=== PATIENT | female | born 1970 | race Caucasian/White ===

== ENCOUNTER 2016-05-23 00:42 | Emergency (ER) | payer MEDICAID ==
[2016-05-23] MEDS ORDERED: Albuterol Nebulizer 2.5mg/3mL HHN STA (01:00)
[2016-05-23] MEDS ORDERED: Albuterol Nebulizer 2.5mg/3mL HHN ONE (01:05)
--- NOTE | 2016-05-23 01:43 | ED Physician Chart ---
Chief Complaint/HPI - Patient Information Date Seen:: 05/23/16 Time Seen:: 01:20 Chief Complaint:: cough History of Present Illness:: Pt. has had cough and wheezing 2 days. No fever. Cough is nonprod. Denies other med problems. Uses Albut. inhaler. Needs. Allergies:: Allergies Allergy/AdvReac Type Severity Reaction Status Date / Time No Known Allergies Allergy Verified 05/23/16 01:19 Vitals:: Vital Signs - 8 hr 05/23/16 05/23/16 01:06 01:09 Temp 97.8 F HR 120 115 RR 16 22 BP 138/76 O2 Sat % 100 Heart rate 93. Historian:: Patient Review of Systems - Review of Systems General/Constitutional: No fever Skin: No skin lesions Head: No headache ENT: No earache, No sore throat Neck: No neck pain Cardio Vascular: No chest pain Pulmonary: SOB, Cough, No sputum GI: No nausea, No vomiting, No diarrhea G/U: No dysuria Psychiatric: No prior psych history Hematopoietic: No bruising Allergic/Immuno: No urticaria Neurological: No syncope, No focal symptoms Past Medical History - Past Medical History Past Medical History: Asthma/COPD Family History: None Social History: Non Smoker, No Alcohol Surgical History: None Medication: Reviewed (has used inhalers.) Family Medical History - Family Member Sister History Unknown: Yes Ethnicity: Living Status: Still Living Mother History Unknown: Yes Physical Exam - Physical Examination General/Constitutional: Awake, Well-developed, well-nourished, Alert, No distress, GCS 15, Non-toxic appearing, Ambulatory Head: Atraumatic Eyes: Lids, conjuctiva normal, PERRL, EOMI Skin: Nl inspection ENMT: External ears, nose nl Neck: Nontender, Full ROM w/o pain Respiratory: Nl effort/Exclusion Other Respiratory comments:: Wheezing initially, improved. Cardio Vascular: RRR, No murmur, gallop, rubs GI: No tenderness/rebounding/guarding, No organomegaly : No CVA tenderness Extremities: No tenderness or effusion Neuro/Psych: Alert/oriented, Normal motor strength, Judgement/insight normal ED Septic Shock - . Is Septic Shock (SBP<90, OR Lactate>4 mmol\L) present?: No - <6hrs of presentation: Vital Signs: Vital Signs - 8 hr 01/07/17 01/07/17 01:06 01:09 Temp 97.8 F HR 120 115 RR 16 22 BP 138/76 O2 Sat % 100 Reassessment (Disposition) - Reassessment Reassessment:: CXR discussed, pt. feels better and wants to go. Will give script for Albut. MDI and Sascha Elizalde. Reassessment Condition:: Improved - Diagnosis Diagnosis:: Dx: Acute eipsode of asthmatic bronchitis. - Aftercare/Follow up Instructions Aftercare/Follow-Up Instructions:: Counseled pt regarding lab results/diagnosis & need follow up Medication Prescribed:: Rx: Sascha Elizalde sig: take as directed. Disp. #1 No refill Rx: Albuterol MDI: ii puffs qid prn. Disp. #1. No refill. - Patient Disposition Discharge/Transfer:: Home Condition at Disposition:: Improved ED Discharge Plan - Patient Disposition Admit/Discharge/Transfer: PT DISCHARGED HOME Condition at Disposition: Improved
== END 2016-05-23 01:55 | disposition home or self-care (01) ==
LOC: ER 00:42
DX: J45.909 Unspecified asthma, uncomplicated (principal); J20.9 Acute bronchitis, unspecified
CPT/HCPCS: 99283; 96372; 94640; J2930; J7613; Z7502

== ENCOUNTER 2016-05-27 20:32 | Emergency (ER) | payer MEDICAID ==
[2016-05-27] MEDS ORDERED: Albuterol/Ipratropium Neb 3 ML AERS HHN ONE ×4 (20:41→21:08)
--- NOTE | 2016-05-27 20:49 | ED Physician Chart ---
Chief Complaint/HPI - Patient Information Date Seen:: 05/27/16 Time Seen:: 20:46 Chief Complaint:: sob History of Present Illness:: pt here for severe sob. Has hx of asthma and uses inhaler at home. also has a albuterol neb machine at home but ran out of alb neb vials. worse sob today. not a smoker. no leg pain or edema. pt was not speaking at initial eval at all...I assumed this was bc of sob however later I learn she speaks only azerbaijani and neither she nor her bilingual friend volunteered this information... pt is capable of nrml speech. Allergies:: Allergies Allergy/AdvReac Type Severity Reaction Status Date / Time No Known Allergies Allergy Verified 05/23/16 01:19 Historian:: Patient, Family Member Review of Systems - Review of Systems General/Constitutional: No fever, No chills, No weight loss, No weakness, No diaphoresis, No edema, No loss of appetite Skin: No skin lesions, No rash, No bruising Head: No headache, No light-headedness Eyes: No loss of vision, No pain, No diplopia ENT: No earache, No nasal drainage, No sore throat, No tinnitus Neck: No neck pain, No swelling, No thyromegaly, No stiffness, No mass noted Cardio Vascular: No chest pain, No palpitations, No PND, No orthopnea, No edema Pulmonary: SOB (pt was not speaking at initial eval at all...I assumed this was bc of sob however later I learn she speaks only azerbaijani and neither she nor her bilingual friend volunteered this information... pt is capable of nrml speech.) , No cough, No sputum, No wheezing GI: No nausea, No vomiting, No diarrhea, No pain, No melena, No hematochezia, No constipation, No hematemesis G/U: No dysuria, No frequency, No hematuria Musculoskeletal: No bone or joint pain, No back pain, No muscle pain Endocrine: No polyuria, No polydipsia Psychiatric: No prior psych history, No depression, No anxiety, No suicidal ideation Hematopoietic: No bruising, No lymphadenopathy Allergic/Immuno: No urticaria, No angioedema Neurological: No syncope, No focal symptoms, No weakness, No paresthesia, No headache, No seizure, No dizziness, No confusion, No vertigo Past Medical History - Past Medical History Past Medical History: Asthma/COPD Social History: Non Smoker Medication: Reviewed Family Medical History - Family Member Sister History Unknown: Yes Ethnicity: Living Status: Still Living Mother History Unknown: Yes Physical Exam - Physical Examination General/Constitutional: Awake, Well-developed, well-nourished, Alert, No distress, GCS 15, Non-toxic appearing, Ambulatory Other Gen/Cons comments:: pt was not speaking at initial eval at all...I assumed this was bc of sob however later I learn she speaks only azerbaijani and neither she nor her bilingual friend volunteered this information... pt is capable of [facility] speech. Head: Atraumatic Eyes: Lids, conjuctiva normal, PERRL, EOMI Skin: Nl inspection, No rash, No skin lesions, No ecchymosis, Well hydrated, No lymphadenopathy ENMT: External ears, nose nl, Nasal exam nl, Lips, teeth, gums nl Neck: Nontender, Full ROM w/o pain, No JVD, No nuchal rigidity, No bruit, No mass, No stridor Respiratory: Nl effort/Exclusion, Clear to Auscultation Other Respiratory comments:: pos diffuse wheeze and decreased air mvt. pt not talking at initial eval but not looking spent. no tripod. is alert and aware. Cardio Vascular: RRR, No murmur, gallop, rubs, NL S1 S2 GI: No tenderness/rebounding/guarding, No organomegaly, No hernia, Normal BS's, Nondistended, No mass/bruits, No McBurney tenderness : No CVA tenderness Extremities: No tenderness or effusion, Full ROM, normal strength in all extremities, No edema, Normal digits & nails Other Extremities comments:: no edema, no fitz sx Neuro/Psych: Alert/oriented, DTR's symmetric, Normal sensory exam, Normal motor strength, Judgement/insight normal, Mood normal, Normal gait, No focal deficits Misc: normal gait, Normal back, No paraspinal tenderness ED Septic Shock - . Is Septic Shock (SBP<90, OR Lactate>4 mmol\L) present?: No Reassessment (Disposition) - Reassessment Reassessment:: pt doing better. speaking full sentences in [place]. alert. nontoxic. improved after 2nd neb saO2 now 98%RA. rx prednisone taper, zpac, alubterol neb vials refill. pt to avoid smokers and see pmd in next day. return if worse. Reassessment Condition:: Improved - Diagnosis Diagnosis:: 1 athma 2 bronchitis - Aftercare/Follow up Instructions Aftercare/Follow-Up Instructions:: Counseled pt & family regarding lab results/ diagnosis & need follow up - Patient Disposition Discharge/Transfer:: Home Condition at Disposition:: Improved
--- NOTE | 2016-05-28 11:42 | Diagnostic Imaging Report ---
Portable chest x-ray History: Shortness of breath Allowing for portable technique the heart size is normal. No focal pulmonary parenchymal processes. No hilar or mediastinal abnormalities. Impression: No acute abnormalities.
== END 2016-05-27 22:20 | disposition home or self-care (01) ==
LOC: ER 20:32
DX: J44.9 Chronic obstructive pulmonary disease, unspecified (principal); J45.909 Unspecified asthma, uncomplicated
CPT/HCPCS: 99283; 71010; 96372; 94664; J2930; 94640; Z7502

== ENCOUNTER 2016-07-11 13:42 | Emergency (ER) | payer MEDICAID ==
[2016-07-11] MEDS ORDERED: Albuterol Nebulizer 2.5mg/3mL HHN STA (13:51)
--- NOTE | 2016-07-11 13:51 | ED Physician Chart ---
Chief Complaint/HPI - Patient Information Date Seen:: 07/11/16 Time Seen:: 13:42 Chief Complaint:: SOB History of Present Illness:: 46-year-old female history of asthma, complains of acute, worsening, constant, severe, shortness of breath that started yesterday. Has associated wheezing. Has been using her albuterol inhaler but it has not been helping. Allergies:: Allergies Allergy/AdvReac Type Severity Reaction Status Date / Time No Known Allergies Allergy Verified 05/27/16 21:45 Historian:: Patient Review:: Nurse's Note Reviewed Review of Systems - Review of Systems Other: Complete system review otherwise unremarkable except as noted in HPI. Past Medical History - Past Medical History Past Medical History: Asthma/COPD Family History: None Social History: Non Smoker, No Alcohol, No Drug Use, Employed Surgical History: None Psychiatricy History: None Medication: Reviewed Family Medical History - Family Member Sister History Unknown: Yes Ethnicity: Living Status: Still Living Hx Family Cancer: No Hx Family Coronary Artery Disease: No Hx Family Congestive Heart Failure: No Hx Family Hypertension: No Mother History Unknown: Yes Physical Exam - Physical Examination Other:: INITIAL VITAL SIGNS: Reviewed by me GENERAL: Alert and interactive. Moderate respiratory distress HEAD: Head is normocephalic and atraumatic EYES: EOMI. . No scleral icterus. No conjunctival injection ENT: Moist mucous membranes. NECK: Supple. No masses. Full range of motion RESPIRATORY: Tachypneic, bilateral inspiratory and expiratory wheezing. CV: Tachycardic. No murmurs, rubs, or gallops ABDOMEN: Soft, non-distended, non-tender. No guarding. No rebound. No masses. EXTREMITIES: No deformity. No cyanosis. No edema. SKIN: Warm and dry. No obvious rashes. NEUROLOGIC: Alert and oriented. Face is symmetric. Speech is normal. Moves all extremities equally. Motor and sensory distally intact. ED Septic Shock - . Is Septic Shock (SBP<90, OR Lactate>4 mmol\L) present?: No Reassessment (Disposition) - Reassessment Reassessment:: The patient's blood pressure was elevated (>120/80) but appears stable without evidence of hypertensive emergency or urgency. The patient was counseled about the risks hypertension urged to pursue outpatient monitoring and therapy within a week with her primary care physician. Patient having asthma exacerbation. Received albuterol and ipratropium. Also received IV Solu-Medrol. Symptoms greatly improved. Has inhalers at home. No underlying infectious etiology suspected. Provided prescription for prednisone to be given daily for 5 days. Follow-up PCP 1-2 days. Return to ER precautions were given. Patient understands and agrees with the plan. Reassessment Condition:: Improved - Diagnosis Diagnosis:: Asthma exacerbation, acute Elevated blood pressure without diagnosis of hypertension - Aftercare/Follow up Instructions Aftercare/Follow-Up Instructions:: Counseled pt regarding lab results/diagnosis & need follow up, Refer to Discharge Instructions - Patient Disposition Discharge/Transfer:: Home Time:: 15:08 Condition at Disposition:: Improved ED Discharge Plan - Patient Disposition Admit/Discharge/Transfer: PT DISCHARGED HOME Condition at Disposition: Improved Instructions: Asthma, Adult, [id number]
[2016-07-11] MEDS ORDERED: Albuterol Nebulizer 2.5mg/3mL HHN ONE ×2 (13:55→14:00)
[2016-07-11] MEDS ORDERED: Ipratropium Neb 0.5 mg/2.5 mL UD HHN STA (14:02)
[2016-07-11] MEDS ORDERED: Ipratropium Neb 0.5 mg/2.5 mL UD HHN ONE (14:04)
== END 2016-07-11 15:05 | disposition home or self-care (01) ==
LOC: ER 13:42
DX: J45.901 Unspecified asthma with (acute) exacerbation (principal); R03.0 Elevated blood-pressure reading, without diagnosis of hypertension; J44.9 Chronic obstructive pulmonary disease, unspecified
CPT/HCPCS: 99284; 96374; 94640; J2930; 90779; J7613; Z7502

== ENCOUNTER 2016-08-11 02:10 | Inpatient (IN) | payer MEDICAID ==
[2016-08-11 02:51] LABS: HEMATOCRIT 26.1 % (35.0-45.0); MEAN CORPUSCULAR HEMOGLOBIN 19.4 pg (27.0-31.0); MEAN CORPUSCULAR HGB CONC 30.6 pg (28.0-36.0); RED BLOOD COUNT 4.11 Mil/cmm (3.80-5.10); RED CELL DISTRIBUTION WIDTH 19.2 % (11.5-20.0); WHITE BLOOD COUNT 8.9 Th/cmm (4.8-10.8)
[2016-08-11 02:58] LABS: INR 0.99 (0.5-1.4); PROTHROMBIN TIME (TEST) 10.3 SECONDS (9.5-11.5)
[2016-08-11 02:59] LABS: ALB/GLOB RATIO 1.2 (1.0-1.8); ALKALINE PHOSPHATASE 69 U/L (34-104); ANION GAP 8.5 (7.0-16.0); BILIRUBIN,TOTAL 0.4 mg/dL (0.3-1.0); BUN - UREA NITROGEN 12 mg/dL (7-25); CALCIUM SERUM 9.1 mg/dL (8.6-10.3); CARBON DIOXIDE 22.9 mEq/L (21.0-31.0); CHLORIDE 107 mEq/L (98-107); CREATININE - SERUM 0.6 mg/dL (0.6-1.2); GLUCOSE 101 mg/dL (70-105); POTASSIUM SERUM 3.4 mEq/L (3.5-5.1); SGOT 15 U/L (13-39); SGPT/ALT 9 U/L (7-52); SODIUM SERUM 135 mEq/L (136-145)
[2016-08-11 03:00] LABS: HCO3 24.4 mEq/L (20.0-26.0); pH 7.42 (7.35-7.45)
[2016-08-11 03:01] LABS: ABG SOURCE ARTERIAL; ALLEN TEST Positive; BE(B) -0.7 mEq/L (-3.0-3.0)
[2016-08-11 03:02] LABS: CRITICAL VALUES REPORTED BY DV
[2016-08-11 03:05] LABS: MEAN CELL VOLUME 63.5 fl (81-100)
--- NOTE | 2016-08-11 03:27 | ED Physician Chart ---
Chief Complaint/HPI - Patient Information Date Seen:: 08/11/16 Time Seen:: 02:21 Chief Complaint:: SOB History of Present Illness:: THIS IS A 46 YO FEMALE WITH THE ONSET OF DIFFICULTY WITH BREATHING AND SOME WEAKNESS. SHE DENIES BLOOD IN THE STOOL,URINE AND SHE DOES NOT HAVE HEAVY VAGINAL BLEEDING. SHE DENIES PAIN, NAUSEA AND VOMITING. SHE HAS DENIES A COUGH , CHEST CONGESTION AND FEVER. Allergies:: Allergies Allergy/AdvReac Type Severity Reaction Status Date / Time No Known Allergies Allergy Verified 08/11/16 02:43 Vitals:: Vital Signs - 8 hr 08/11/16 02:15 Temp 98.2 F HR 110 RR 24 BP 133/78 O2 Sat % 99 Historian:: Patient, Family Member Review:: Nurse's Note Reviewed Review of Systems - Review of Systems General/Constitutional: No fever, No chills, No weight loss, No weakness, No diaphoresis, No edema, No loss of appetite Skin: No skin lesions, No rash, No bruising Head: No headache, No light-headedness Eyes: No loss of vision, No pain, No diplopia ENT: No earache, No nasal drainage, No sore throat, No tinnitus Neck: No neck pain, No swelling, No thyromegaly, No stiffness, No mass noted Cardio Vascular: No chest pain, No palpitations, No PND, No orthopnea, No edema Pulmonary: SOB, No cough, No sputum, No wheezing GI: No nausea, No vomiting, No diarrhea, No pain, No melena, No hematochezia, No constipation, No hematemesis G/U: No dysuria, No frequency, No hematuria Musculoskeletal: No bone or joint pain, No back pain, No muscle pain Endocrine: No polyuria, No polydipsia Psychiatric: No prior psych history, No depression, No anxiety, No suicidal ideation Hematopoietic: No bruising, No lymphadenopathy Allergic/Immuno: No urticaria, No angioedema Neurological: No syncope, No focal symptoms, Weakness, No paresthesia, No headache, No seizure, No dizziness, No confusion, No vertigo Past Medical History - Past Medical History Obtainable: Yes Past Medical History: Asthma/COPD Family History: None Social History: Non Smoker, No Alcohol, No Drug Use Surgical History: None Psychiatricy History: None Medication: Reviewed Family Medical History - Family Member Sister History Unknown: Yes Ethnicity: Living Status: Still Living Hx Family Cancer: No Hx Family Coronary Artery Disease: No Hx Family Congestive Heart Failure: No Hx Family Hypertension: No Mother History Unknown: Yes Physical Exam - Physical Examination General/Constitutional: Awake, Well-developed, well-nourished, Alert, No distress, GCS 15, Non-toxic appearing, Ambulatory Head: Atraumatic Eyes: Lids, conjuctiva normal, PERRL, EOMI Skin: Nl inspection, No rash, No skin lesions, No ecchymosis, Well hydrated, No lymphadenopathy ENMT: External ears, nose nl, Nasal exam nl, Lips, teeth, gums nl Neck: Nontender, Full ROM w/o pain, No JVD, No nuchal rigidity, No bruit, No mass, No stridor Respiratory: Nl effort/Exclusion, Clear to Auscultation, No Wheeze/Rhonchi/Rales Cardio Vascular: RRR, No murmur, gallop, rubs, NL S1 S2 GI: No tenderness/rebounding/guarding, No organomegaly, No hernia, Normal BS's, Nondistended, No mass/bruits, No McBurney tenderness : No CVA tenderness Extremities: No tenderness or effusion, Full ROM, normal strength in all extremities, No edema, Normal digits & nails Neuro/Psych: Alert/oriented, DTR's symmetric, Normal sensory exam, Normal motor strength, Judgement/insight normal, Mood normal, Normal gait, No focal deficits Misc: normal gait, Normal back, No paraspinal tenderness Labs/Radiology/EKG Results - Lab Results Results: Laboratory Tests 08/11/16 08/11/16 08/11/16 02:16 02:20 02:20 WBC 8.9 RBC 4.11 Hgb 8.0 L Hct 26.1 L MCV 63.5 L MCH 19.4 L MCHC Differential 30.6 RDW 19.2 Plt Count 197 MPV 9.0 PT 10.3 INR 0.99 Specimen Source ARTERIAL Sample Site RB pH 7.42 pCO2 36.0 pO2 85.0 HCO3 24.4 Base Excess -0.7 O2 Saturation 97.0 Aaron Test Positive Vent Rate NA Inspired O2 NA Tidal Volume NA PEEP NA Pressure (ins/psv/peep) NA Critical Value DV Sodium Potassium Chloride Carbon Dioxide Anion Gap BUN Creatinine Est GFR ( Amer) Est GFR (Non-Af Amer) BUN/Creatinine Ratio Glucose Calcium Total Bilirubin AST ALT Alkaline Phosphatase Troponin I Total Protein Albumin Globulin Albumin/Globulin Ratio 08/11/16 08/11/16 02:20 02:20 WBC RBC Hgb Hct MCV MCH MCHC Differential RDW Plt Count MPV PT INR Specimen Source Sample Site pH pCO2 pO2 HCO3 Base Excess O2 Saturation Aaron Test Vent Rate Inspired O2 Tidal Volume PEEP Pressure (ins/psv/peep) Critical Value Sodium 135 L Potassium 3.4 L Chloride 107 Carbon Dioxide 22.9 Anion Gap 8.5 BUN 12 Creatinine 0.6 Est GFR ( Amer) > 60.0 Est GFR (Non-Af Amer) > 60.0 BUN/Creatinine Ratio 20.0 Glucose 101 Calcium 9.1 Total Bilirubin 0.4 AST 15 ALT 9 Alkaline Phosphatase 69 Troponin I < 0.01 L Total Protein 7.8 Albumin 4.2 Globulin 3.6 Albumin/Globulin Ratio 1.2 - Radiology Results Results: CHEST X-RAY = NAD AND NO INFILTRATES ARE SEEN. THERE IS NO CARDIOMEGALY - EKG Interpretations EKG Time:: 02:34 Rhythm: SINUS TACHYCARDIA [place]: RIGHT Rate: 102 Comments:: THERE ARE NO PVC, PAC, OR HEART BLOCKS SEEN. ED Septic Shock - . Is Septic Shock (SBP<90, OR Lactate>4 mmol\L) present?: No - <6hrs of presentation: Vital Signs: Vital Signs - 8 hr 08/11/16 02:15 Temp 98.2 F HR 110 RR 24 BP 133/78 O2 Sat % 99 Reassessment (Disposition) - Reassessment Reassessment Condition:: Unchanged - Diagnosis Diagnosis:: SYMPTOMATIC ANEMIA - Patient Disposition Discharge/Transfer:: Acute Care w/in this hosp Condition at Disposition:: Unchanged ED Discharge Plan - Patient Disposition Admit/Discharge/Transfer: Acute Care w/in this hosp Condition at Disposition: Unchanged
[2016-08-11 03:35] LABS: URINE BILIRUBIN NEGATIVE (NEGATIVE); URINE BLOOD MODERATE (NEGATIVE); URINE COLOR YELLOW; URINE GLUCOSE (UA) NEGATIVE (NEGATIVE); URINE KETONE NEGATIVE (NEGATIVE); URINE PH 6.5; URINE PROTEIN NEGATIVE (NEGATIVE); URINE UROBILINOGEN 0.2 E.U./dL (0.2 - 1.0)
[2016-08-11 03:36] LABS: URINE BACTERIA FEW /hpf (NONE SEEN); URINE EPITHELIAL CELLS MODERATE /lpf (FEW); URINE WBC 0-2 /hpf (0-5)
[2016-08-11 05:09] LABS: BAND NEUTROPHILE 1 % (0-10); EOSINOPHIL 2 % (0-5); NEUTROPHILS 59 % (40-80); PLATELET COUNT 197 Th/cmm (150-400); PLATELET ESTIMATE ADEQUATE (NORMAL); TOTAL CELLS COUNTED 100
[2016-08-11 05:10] LABS: HYPOCHROMIA 2+; MICROCYTOSIS 2+; POIKILOCYTOSIS 1+; POLYCHROMASIA 1+
[2016-08-11] MEDS ORDERED: D5-0.45NS w/20 mEq KCL 1,000 ML IV SCH (08:45)
[2016-08-11] MEDS ORDERED: Pantoprazole 40 mg EC Tab PO SCH (09:00)
[2016-08-11 09:44] LABS: MEAN CORPUSCULAR HGB CONC 30.3 pg (28.0-36.0); MEAN PLATELET VOLUME 8.7 fl; RED BLOOD COUNT 4.14 Mil/cmm (3.80-5.10); RED CELL DISTRIBUTION WIDTH 18.9 % (11.5-20.0); WHITE BLOOD COUNT 8.4 Th/cmm (4.8-10.8)
--- NOTE | 2016-08-11 09:46 | History & Physical ---
CHIEF COMPLAINT: Symptomatic anemia. HISTORY OF PRESENT ILLNESS: This is a 46-year-old female who presents to [facility] ER for difficulty breathing, unable to take a deep breath with fatigue and weakness. The patient states that she had similar symptoms previously approximately 1 month ago and had visited to the ER for the same symptoms during which time, they released her from the ER. However, this time, the patient had difficulty taking a deep breath and was subsequently evaluated here in the ER. Her initial lab work came back with a white count of 8.9, hemoglobin was noted to be low at 8.0, hematocrit also low at 26.1, platelets 197. Her Chem-7, sodium was 135, potassium was noted to be low at 3.4, chloride 107, bicarbonate 22.9, BUN 12, creatinine 0.6, glucose was 101. Her UA was negative. Chest x-ray was also essentially no acute disease. EKG was done in the ER, which showed sinus tachycardia at a regular rate of 102. PAST MEDICAL HISTORY: Includes asthma and COPD. FAMILY HISTORY: None. SOCIAL HISTORY: None. PAST SURGICAL HISTORY: None. PSYCHIATRIC HISTORY: None. MEDICATIONS: See medication list. FAMILY HISTORY: Noncontributory. REVIEW OF SYSTEMS: Essentially negative with the exception of the above complaints. PHYSICAL EXAMINATION: VITAL SIGNS: Temperature 99.3, pulse 102, blood pressure 131/67, respiration 19. GENERAL: This is a 46-year-old female, well developed, well nourished, appears her stated age. HEENT: Normocephalic, atraumatic. Pupils equal, round, reactive to light and accommodation. Extraocular muscles intact. Ears: TMs intact. NECK: Supple. Good range of motion. No thyromegaly. No lymphadenopathy. HEART: Regular rate and rhythm. No murmurs, rubs or clicks. LUNGS: Clear to auscultation. No rales, rhonchi or wheeze. ABDOMEN: Soft, nontender, nondistended. Bowel sounds are active in all 4 quadrants. No rebound tenderness, rigidity or guarding. EXTREMITIES: No clubbing, cyanosis or edema. Pedal pulses intact. ASSESSMENT AND PLAN: 1. Symptomatic anemia, rule out gastrointestinal bleed. We will type and screen for 2 units of packed red blood cells. Repeat CBC for today and tomorrow. GI consult with Dr. Clement. We will order stool cultures x 2. The patient is on Protonix 40 mg IV. 2. Hypokalemia. Potassium 3.4. We will start patient on potassium supplements. JOB# [id number]
[2016-08-11] MEDS: Ferrous Sulfate 325 MG TAB PO SCH (09:52)
[2016-08-11 09:56] LABS: HEMOGLOBIN 7.9 gm/dL (11.7-15.5); MEAN CELL VOLUME 62.9 fl (81-100); PLATELET COUNT 349 Th/cmm (150-400)
[2016-08-11 10:22] LABS: ANISOCYTOSIS 1+; BAND NEUTROPHILE 4 % (0-10); BASOPHIL 2 % (0-3); EOSINOPHIL 1 % (0-5); NEUTROPHILS 84 % (40-80); TOTAL CELLS COUNTED 100
[2016-08-11 10:23] LABS: MICROCYTOSIS 3+; PLATELET ESTIMATE ADEQUATE (NORMAL); PLATELET MORPHOLOGY GIANT PLATELETS SEEN (NORMAL); POLYCHROMASIA 1+
--- NOTE | 2016-08-11 13:15 | Admit Criteria Form ---
Admit Criteria Forms - Admit Criteria Diagnosis: ANEMIA, IRON DEFICIENCY OR UNSPECIFIED Clinical Indications for Inpatient Care (Place 'X' for any and all applicable criteria): Admission is indicated for ANY ONE of the following(1)(2)(3)(4)(5)(6)(7): [X] I. Inpatient admission required rather than observation care (Also use Anemia, Iron Deficiency or Unspecified: Observation Care guideline as appropriate) because of ANY ONE of the following: [] a) Hemodynamic instability that is severe or persistent [] b) Active bleeding that cannot be rapidly controlled [] c) CVS symptoms (i.e., dyspnea, chest pain, heart failure) that are severe or persistent [] d) Neurologic symptoms (i.e., cognitive impairment, recurrent syncope or near syncope) that are severe or persistent [] e) Cardiac arrhythmias of immediate concern [] f) Acute peripheral ischemia (e.g., pulseless, cool, mottled, or cyanotic extremity) [] g) High-risk low platelet count [] h) Acute renal failure [] i) Ongoing transfusion for blood loss (greater than 2 units) [] j) IV fluid to replace significant ongoing (eg, >24 hours) losses (> 3 L/m2 per day) [] k) Pulmonary artery catheter monitoring [] l) Supplemental oxygen or respiratory treatments for over 24 hours that are performable only in acute inpatient setting [] m) Immediate inpatient surgery [X] n) Other condition, treatment or monitoring requiring inpatient admission [] II Active massive hemorrhage [] III. Active hemolysis with rapidly progressive anemia [A](6) Extended stay beyond goal length of stay may be needed for (17)(18) []a) Diagnosed cause of anemia requiring longer hospitalization (eg, active GI bleeding, immune hemolysis requiring electrophoresis, complications of malignancy requiring acute care []b) Continued emergent anemia indicators (23) []c) Transfusion reactions []d) Associated leukopenia or thrombocytopenia needing inpatient care []e) Active comorbidities (eg, renal failure, heart failure) The original [employer] content created by [employer] has been revised. The portions of the content which have been revised are identified through the use of italic text or in bold. [employer] has neither reviewed nor approved the modified material. All other unmodified content is copyright [employer]. Please see references footnoted in the original [facility] edition 2016 Admit Criteria Met?: Yes
--- NOTE | 2016-08-11 15:41 | Diagnostic Imaging Report ---
Pelvic ultrasound HISTORY: Pain The exam is limited to transabdominal sonographic technique as the patient refused transvaginal sonographic evaluation. There is a markedly enlarged uterus (15.1 x 9.9 x 4.0 cm). There is a heterogeneous myometrium. An approximate 4.7 x 4.0 x 5.7 cm heterogeneous density is noted in the anterior fundal region consistent with fibroid formation. An approximate 4.9 x 4.3 cm heterogeneous density is noted in the lower posterior uterine wall consistent with fibroid formation. There appears to be encroachment on the region of the endometrium that is not clearly delineated. The right ovary appears enlarged (3.7 x 3.2 x 5.5 cm). This is associated with an approximate 3.0 cm cyst. The left ovary and left adnexal region is unremarkable. No free fluid in the pelvis. IMPRESSION: 1. Limited exam associated with transabdominal sonographic technique (the patient declined endovaginal sonographic evaluation.) 2. Markedly enlarged uterus with evidence of fibroid changes that appear to encroach on the region of the endometrium is not clearly defined. 3. Right ovarian enlargement associated with a 3.0 cm cystic lesion. In view of the patient's age, a follow-up ultrasound exam in several weeks recommended for assessment of a physiologic basis.
--- NOTE | 2016-08-12 05:43 | Consultation ---
INPATIENT GASTROINTESTINAL CONSULTATION REFERRING PHYSICIAN: Tino Wang D.O. REASON FOR CONSULTATION: Anemia. HISTORY OF PRESENT ILLNESS: A 46-year-old female who presented to the hospital with shortness of breath, was found to be anemic. The patient denies having any abdominal pain. Denies nausea, vomiting, diarrhea, constipation, melena, hematochezia, hematemesis, or coffee-ground emesis. PAST MEDICAL HISTORY: Significant for asthma and COPD. PAST SURGICAL HISTORY: None to abdomen. FAMILY HISTORY: Noncontributory. SOCIAL HISTORY: Denies tobacco, alcohol or IV drug usage. ALLERGIES: None. MEDICATIONS: Iron, Protonix, and IV fluids. REVIEW OF SYSTEMS: Ten-point review of system was performed and pertinent positive was the shortness of breath. All systems were otherwise negative. PHYSICAL EXAMINATION: VITAL SIGNS: Temperature 98.7, breathing 19, pulse of 91, blood pressure 115/59, satting 99%. GENERAL: In no apparent distress. EYES: Anicteric. Normal conjunctivae. HEENT: Normocephalic, atraumatic. Moist mucous membranes. NECK: Soft, supple. CHEST: Clear, no effort. CARDIOVASCULAR: Regular rate and rhythm. ABDOMEN: Soft, nontender, nondistended. SKIN: Warm and dry. EXTREMITIES: Reveal no cyanosis. LABORATORY DATA: Show white count 8.4, hemoglobin 7.9, MCV of 62, platelets of 349. INR is 0.99. LFTs within normal limits. Urine, blood was positive; stool OB negative. IMPRESSION: A 46-year-old female with microcytic anemia, may even have iron deficiency, blood was seen in the urine, but not in the stool. It is possible that the patient's bleeding may be more hematuria. PLAN: 1. Consider urology evaluation per PCP. 2. Should the patient have any GI symptoms of blood loss, then endoscopy, colonoscopy would then be warranted. 3. Iron supplementation per PCP. 4. Follow H and H, and transfuse as needed. Thank you for allowing me to participate. Please call me if any questions. JOB# [id number]
[2016-08-12 07:17] LABS: MEAN CORPUSCULAR HEMOGLOBIN 21.7 pg (27.0-31.0); MEAN CORPUSCULAR HGB CONC 31.8 pg (28.0-36.0); MEAN PLATELET VOLUME 8.7 fl; RED BLOOD COUNT 4.56 Mil/cmm (3.80-5.10); RED CELL DISTRIBUTION WIDTH 22.5 % (11.5-20.0); WHITE BLOOD COUNT 8.3 Th/cmm (4.8-10.8)
[2016-08-12 07:20] LABS: HEMATOCRIT 31.2 % (35.0-45.0); HEMOGLOBIN 9.9 gm/dL (11.7-15.5); PLATELET COUNT 243 Th/cmm (150-400)
[2016-08-12 07:43] LABS: MEAN CELL VOLUME 68.3 fl (81-100)
[2016-08-12 08:21] LABS: ALB/GLOB RATIO 1.1 (1.0-1.8); ALKALINE PHOSPHATASE 60 U/L (34-104); BILIRUBIN,TOTAL 0.7 mg/dL (0.3-1.0); BUN - UREA NITROGEN 7 mg/dL (7-25); BUN/CREATININE RATIO 11.7; CALCIUM SERUM 9.1 mg/dL (8.6-10.3); CHLORIDE 111 mEq/L (98-107); CREATININE - SERUM 0.6 mg/dL (0.6-1.2); GLUCOSE 94 mg/dL (70-105); POTASSIUM SERUM 3.5 mEq/L (3.5-5.1); SGOT 13 U/L (13-39); SGPT/ALT 7 U/L (7-52); SODIUM SERUM 139 mEq/L (136-145)
[2016-08-12] MEDS: Ferrous Sulfate 325 MG TAB PO SCH (08:21)
[2016-08-12 08:45] LABS: ANION GAP 5.6 (7.0-16.0); CARBON DIOXIDE 25.9 mEq/L (21.0-31.0)
[2016-08-12 10:16] LABS: ANISOCYTOSIS 1+; EOSINOPHIL 3 % (0-5); MICROCYTOSIS 3+; NEUTROPHILS 68 % (40-80); PLATELET ESTIMATE ADEQUATE (NORMAL); PLATELET MORPHOLOGY PLATELET CLUMPS SEEN (NORMAL); TOTAL CELLS COUNTED 100
--- NOTE | 2016-08-12 10:31 | Diagnostic Imaging Report ---
Ultrasound abdomen HISTORY: Abdominal pain COMPARISON: Pelvic ultrasound same day Technique: Sonography of the abdomen was performed in multiple planes. FINDINGS: The visualized portion the pancreas are unremarkable. Assessment of the pancreas is limited due to bowel gas. The visualized portions of the abdominal aorta within normal limits in size. The distal abdominal aorta was not well-visualized. The liver demonstrates normal echogenicity and measures 15.7 cm. No evidence of focal lesions. No evidence of gallstones or gallbladder wall thickening. The common bile duct measures 4 mm. Assessment of the pancreas is limited due to bowel gas. The right kidney measures 12.1 cm. The left kidney measures 11.8 cm. No evidence of focal lesions or hydronephrosis. The spleen measures 12.6 cm. IMPRESSION: No evidence of gallstones No evidence of hydronephrosis. Borderline prominent spleen.
--- NOTE | 2016-08-13 17:23 | Discharge Summary ---
PRELIMINARY DIAGNOSES: 1. Symptomatic anemia, rule out gastrointestinal bleeding. 2. Hypokalemia. DISCHARGE DIAGNOSES: 1. Symptomatic anemia, now resolved. Gastrointestinal bleed ruled out. 2. Hypokalemia, now improved. BRIEF HISTORY OF PRESENT ILLNESS: This is a 46-year-old female who presents to [facility] ER for difficulty breathing, unable to take a deep breath with increased fatigue and weakness. The patient states that she had similar symptoms previously approximately one month ago and a visit in the ER for the same symptoms, during which they released her from the ER after evaluation. However, this time, the patient states that she had difficulty taking a deep breath and felt short of breath and does have a history of asthma and COPD apparently, tried her inhalers, which did not help. She was subsequently seen in the ER. Her initial lab work came back with a white count of 8.9. Her hemoglobin was noted to be low at 8.0, hematocrit was 26.1, platelets 197. Chem-7; sodium was 135, potassium noted to be low at 3.4, chloride 107, bicarb 22.9, BUN 12, creatinine 0.6 with a glucose of 101. She did have UA, which was essentially negative. Chest x-ray was essentially no acute disease. EKG was done in the ER, which showed some sinus tachycardia at the rate of 102. She was subsequently admitted for symptomatic anemia, rule out GI bleed. HOSPITAL COURSE: The patient was typed and screened for 2 units of packed blood cells and was subsequently transfused 2 units of packed red blood cell. Her initial hemoglobin was 8.0. Her repeat H and H a few hours later on 08/11/2016 showed it dropped down to 7.9. The patient was having some shortness of breath and tachycardia. She was transferred 2 units of packed red blood cells. Repeat H and H was ordered for the following day on 08/12/2016. Her hemoglobin had increased to 9.9 and hematocrit 31.2. The patient felt much better. She was seen and evaluated by GI. Her stool occults x 2 were both negative. She also underwent ultrasounds of her abdomen and pelvis. The pelvic ultrasound did reveal enlarged uterus with fibroids noted. She was noted to have a right ovarian cyst as well on the ultrasound. Also, an abdominal ultrasound was ordered during her hospital stay, which revealed no gallstones, hydronephrosis. Pancreas was unable to evaluate due to the bowel gas. Her right and left kidneys were normal, no focal lesions or hydronephrosis was noted, spleen was normal size, borderline prominent size, measuring about 12.6 cm. The patient did improve during her hospital stay. She eventually was discharged in stable condition, was given a prescription for ferrous sulfate 325 mg once daily. She was also advised to follow up with her primary care physician in 2 to 3 days. [facility]# [id number]
== END 2016-08-12 11:40 | disposition home or self-care (01) | DRG 663 ==
LOC: ER 02:10 → MSI 04:45
PROVIDERS: ADMIT Family Medicine; ATTEND Family Medicine
PROC: 30233N1 Transfusion of Nonautologous Red Blood Cells into Peripheral Vein, Percutaneous Approach (ICD-10-PCS; principal; 2016-08-11)
DX: D64.9 Anemia, unspecified (principal); J44.9 Chronic obstructive pulmonary disease, unspecified; J45.909 Unspecified asthma, uncomplicated; E87.6 Hypokalemia; D25.9 Leiomyoma of uterus, unspecified; N83.201 Unspecified ovarian cyst, right side
CPT/HCPCS: 36415-UA; 36600-90; 71010-TC; 76700-TC; 76856-TC; 80053-TC; 81001-TC; 82270-TC; 82803-TC; 84443-TC; 84484-TC; 85007-TC; 85027-TC; 85610-TC; 86850-TC; 86900-TC; 86901-TC; 86922-TC; 90784; 93005; C9113; P9016; Z7610